=== PATIENT | female | born 1960 | race Caucasian/White ===

== ENCOUNTER 2016-02-19 14:28 | Emergency (ER) | payer OTHER ==
[~2016-02-19] VITALS: Ht 165.1 cm; Wt 61.2 kg
[2016-02-19] MEDS ORDERED: IBUPROFEN 400 MG TABLET ONE (18:10)
[2016-02-19] MEDS ORDERED: IBUPROFEN 400 MG TABLET PO ONE (18:30)
[2016-02-19 19:08] VITALS: BP 120/80
== END 2016-02-19 19:10 | disposition home or self-care (01) ==
LOC: ER 14:33
DX: R51 Headache (principal); J32.9 Chronic sinusitis, unspecified; Z88.2 Allergy status to sulfonamides; Z91.013 Allergy to seafood; Z91.018 Allergy to other foods
CPT/HCPCS: 99283; A4606; Z7610